=== PATIENT | male | born 1960 | race Caucasian/White ===

== ENCOUNTER 2016-09-19 08:15 | Emergency (ER) | payer BC, MEDICAID ==
[~2016-09-19] VITALS: Ht 167.6 cm; Wt 100.9 kg
[~2016-09-19 08:15] MED LIST: NAPR375T2 PO; VALS160C PO; VIC PO
[2016-09-19 08:20] VITALS: BP 133/81
--- NOTE | 2016-09-19 09:50 | NUR ---
Patient ambulated to bed 5. RN evaluating patient at bedside.
--- NOTE | 2016-09-19 09:55 | NUR ---
56/M PRESENT TO ER C/O DIARRHEA x 11 DAYS. HX: HTN, HYPERLIPIDEMIA MEDS: AMLODIPINE 40MG . DENIES N/V; SKIN IS PINK/WARM/DRY; AAOX4 WITH EVEN AND STEADY GAIT; LUNGS CLEAR BL; HR EVEN AND REGULAR; PT DENIES ANY FEVER, CP, SOB, OR COUGH AT THIS TIME; PATIENT STATES PAIN OF 5/10 AT THIS TIME; VSS; PATIENT POSITIONED FOR COMFORT; HOB ELEVATED; BEDRAILS UP X2; BED DOWN. ER MD MADE AWARE OF PT STATUS.
[2016-09-19] MEDS ORDERED: NACL 0.9% 1,000 ML IV SCH (10:19)
[2016-09-19] MEDS ORDERED: ONDANSETRON 4 MG/2 ML VIAL IVP ONE (10:20)
[2016-09-19] MEDS ORDERED: fentaNYL 0.05 MG/ML VIAL IVP ONE (10:20)
[2016-09-19 10:55] LABS: BASOPHILS % (AUTO) 0.3 % (0.0-2.0); EOSINOPHILS # (AUTO) 0.1 K/uL (0-0.4); EOSINOPHILS % (AUTO) 1.3 % (0.0-4.0); HEMATOCRIT 43.6 % (36-52); HEMOGLOBIN 14.8 g/dL (12.0-18.0); LYMPHOCYTES # (AUTO) 0.3 K/uL (2.0-11.5); LYMPHOCYTES % (AUTO) 2.7 % (20.5-51.1); MEAN CORPUSCULAR HEMOGLOBIN 30 pg (27-31); MEAN CORPUSCULAR HGB CONC 34 g/dL (33-37); MEAN CORPUSCULAR VOLUME 87 fL (80-94); MONOCYTES # (AUTO) 0.8 K/uL (0.8-1.0); NEUTROPHILS # (AUTO) 8.6 K/uL (1.8-7.7); NEUTROPHILS % (AUTO) 87.7 % (42.2-75.2); PLATELET COUNT (AUTO) 245 K/uL (140-450); RED BLOOD CELL COUNT(AUTO) 4.99 MIL/uL (4.20-6.10); RED CELL DISTRIBUTION WIDTH 12.7 % (11.6-13.7); WHITE BLOOD COUNT (AUTO) 9.8 K/uL (4.8-10.8)
[2016-09-19 11:14] LABS: PARTIAL THROMBOPLASTIN TIME 26.2 secs (22-35.6)
[2016-09-19 11:19] LABS: ANION GAP 10.7 (8-16); CARBON DIOXIDE 25.5 mmol/L (21-32); POTASSIUM 3.2 mmol/L (3.5-5.1)
[2016-09-19 11:20] LABS: CALCIUM 8.8 mg/dL (8.5-10.1); LACTIC ACID 0.9 mmol/L (0.4-2.0)
[2016-09-19] MEDS ORDERED: POTASSIUM CHLORIDE 10 MEQ TABER PO ONE (11:25)
[2016-09-19 11:26] LABS: ALBUMIN 3.7 g/dL (3.4-5.0); MAGNESIUM 1.8 mg/dL (1.8-2.4); TOTAL BILIRUBIN 0.7 mg/dL (0.0-1.0); TOTAL PROTEIN, SERUM 7.8 g/dL (6.4-8.2)
--- NOTE | 2016-09-19 11:35 | NUR ---
PER DR SCHROEDER DON'T NEED URINE SPECIMEN AT THIS TIME
[2016-09-19 11:47] VITALS: BP 112/74
--- NOTE | 2016-09-19 11:47 | NUR ---
Patient discharged with v/s stable. Written and verbal after care instructions given and explained. Patient alert, oriented and verbalized understanding of instructions. Ambulatory with steady gait. All questions addressed prior to discharge. ID band removed. Patient advised to follow up with PMD. Rx of LOMOTIL given. Patient educated on indication of medication including possible reaction and side effects. Opportunity to ask questions provided and answered.
== END 2016-09-19 11:47 | disposition home or self-care (01) ==
LOC: MED 08:15
DX: R19.7 Diarrhea, unspecified (principal); I10 Essential (primary) hypertension; Z90.89 Acquired absence of other organs
CPT/HCPCS: 36415; 74176; 80053; 83605; 83690; 83735; 85025; 85610; 85730; 87040; 93005; 96361; 96374; 96375; 99285; J2405; J3010; J7030